=== PATIENT | female | born 1970 | race Caucasian/White ===

== ENCOUNTER → 2021-05-06 | Outpatient (CLI) | payer OTHER ==
[~2021-05-06] MED LIST: ASPIRIN CHEWABL81 MG PO; PROTONIX40 MG PO
== END ==
LOC: CT 13:55
DX: R31.9 Hematuria, unspecified (principal); R35.0 Frequency of micturition; R32 Unspecified urinary incontinence; R39.15 Urgency of urination; N28.89 Other specified disorders of kidney and ureter
CPT/HCPCS: Q9963; Q9967

== ENCOUNTER → 2021-10-09 | Outpatient (CLI) | payer OTHER | LOC: KOH-I 09:13 | DX: R10.10 Upper abdominal pain, unspecified (principal); K76.0 Fatty (change of) liver, not elsewhere classified; N28.9 Disorder of kidney and ureter, unspecified | CPT/HCPCS: 76700 ==